=== PATIENT | female | born 2000 | race Caucasian/White ===

== ENCOUNTER 2022-04-11 18:19 | Emergency (ER) | payer OTHER, SELFPAY ==
[2022-04-11 18:29] VITALS: BP 129/85; PULSE 107; RESP 18; TEMP 36.4; O2SAT 99; BMI 27.5
--- NOTE | 2022-04-11 18:57 | ED.ABDPAIN ---
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 Patient is been having diarrhea for about 3 weeks. She did go to clinic at [facility] and did have labs and stool studies done. At the end of March her blood work for celiac, thyroid, comprehensive metabolic panel and cell counts were all normal, was able to review those results as she kindly brought them in [facility]. She subsequently had negative stool studies done. She has started to have diarrhea almost every time she eats. She has had maybe some blood with wiping but states that clinic they did find a couple erosions from wiping with the diarrhea. There has been no veena blood from what I am understanding from her. She has started to have some pain radiating into the right shoulder. No nausea or vomiting. She cannot say there is really different foods that make this worse. There is maybe a grandfather who has had his gallbladder out. Her mom has issues with constipation but there is no known inflammatory bowel disease. She and her father are coming in here to rule out gallbladder disease. She unfortunately ate at 5:30 a.m. [facility] and is presenting about an hour and a half after eating. She has no active abdominal pain or right shoulder pain at this time, no nausea or vomiting at this time, no fever at this time. She had her menstrual cycle through part of this and dusted complicates the question of bleeding or not. Related Data Home Medications Medication Instructions Recorded Confirmed Zoloft 25 mg PO DAILY 04/11/22 04/11/22 Allergies Allergy/AdvReac Type Severity Reaction Status Date / Time No Known Drug Allergies Allergy Verified 04/11/22 18:34 Review of Systems Status of ROS Reports: 6 or more systems reviewed and unremarkable except as noted in History and below Exam Const: Vital Signs, click to edit/add: Vital Signs - 24 hr 04/11/22 18:29 Temperature 97.5 F L Pulse Rate [Right Pulse Oximeter] 107 H Respiratory Rate 18 Blood Pressure [Ri ght Upper Arm] 129/85 Pulse Oximetry 99 Oxygen Delivery Me thod Room Air Documenting provider has reviewed patient's vital signs: yes Common normals: no apparent distress, average body habitus, oriented x3, no limitations, healthy appearing, alert and well nourished General appearance: cooperative, comfortable and well [facility] HENMT: Common normals: normocephalic, head/scalp atraumatic and hearing grossly normal bilaterally Head and scalp: normocephalic and atraumatic Eye: Common normals: PERRL, EOMs intact bilaterally, conjunctivae normal and no scleral icterus Conjunctiva: conjunctiva(e) normal Pupil: PERRL Resp: Common normals: normal respiratory effort, no retractions, no use of accessory muscles and clear to auscultation bilaterally Auscultation: clear to auscultation bilaterally Cardio: Common normals: regular rate, regular rhythm, S1 normal heart sound, S2 normal heart sound, no gallops, no clicks and no murmurs Rate: regular rate Rhythm: regular rhythm Heart sounds: S1 normal and S2 normal GI: Common normals: Normal to inspection, nondistended, normoactive bowel sounds present, soft to palpation, non-tender, no hepatosplenomegaly and no masses Palpation: soft and no hepatosplenomegaly Neuro: Common normals: oriented x3, moves all extremities and no focal motor deficits Sensorium/orientation: alert Speech: speech normal Gait (neuro): normal gait Psych: Appearance: well [facility] Course Course Hospital Course: I reviewed with them that in the setting of her having no acute abdominal pain, no acute symptoms, gallbladder ultrasound would potentially be worthless in this situation. Even offer were normal, cannot say that it truly is normal because she just ate an hour and a half ago. This stands to confound a gallbladder ultrasound. She really should be NPO for 6 hours. Dad offered to bring her back at 11:30 a.m. [place] but I reviewed with him that this really isn't emergent and weak all our ultrasound people in from home. Given she is a college student and does not have routine primary care down here, I am willing to write for an ultrasound for them of a limited right upper quadrant which can be done later. I have reviewed with them that the complication of me ordering this is that there may not be somebody to follow it up and if it does come back abnormal on a day I am gone, the patient may not get the results back and tell I am back in the ER. Also reviewed with them that even if there was a normal gallbladder ultrasound, this does not mean the workup stops if she has ongoing diarrhea. There can be the possibility of a dysfunctional gallbladder which would require a HIDA scan. This is not something I would be willing to order and is not in emergency test. They would have to follow up either in clinic or with our General surgery to have this done. Likewise, a colonoscopy may need to be considered with ongoing diarrhea normal gallbladder workup. It is my thought to do labs tonight, I will certainly get them an ultrasound scheduled outpatient and will have Radiology work with them. I have discussed with them that we do not technically have a prior authorization process and there could be complications with that in the morning when trying to get this scheduled. Ultimately, I do think he should continue to follow up either in clinic or consider seen on our general surgeon to fully workup gallbladder if needed. Vital Signs Vital signs: Initial Vital Signs Temperature 97.5 F L 04/11/22 18:29 Temperature Source Temporal Artery Scan 04/11/22 18:29 Pulse Rate 107 H 04/11/22 18:29 Respiratory Rate 18 04/11/22 18:29 Blood Pressure 129/85 04/11/22 18:29 Blood Pressure Mean 99 04/11/22 18:29 Blood Pressure Position Sitting 04/11/22 18:29 Pulse Oximetry 99 04/11/22 18:29 Oxygen Delivery Method 04/11/22 18:29 Vital Signs Temperature 97.5 F L 04/11/22 18:29 Pulse Rate 107 H 04/11/22 18:29 Respiratory Rate 18 04/11/22 18:29 Blood Pressure 129/85 04/11/22 18:29 Pulse Oximetry 99 04/11/22 18:29 Oxygen Delivery Method 04/11/22 18:29 Temperature 97.5 F L 04/11/22 18:29 Pulse Rate 107 H 04/11/22 18:29 Respiratory Rate 18 04/11/22 18:29 Blood Pressure 129/85 04/11/22 18:29 Pulse Oximetry 99 04/11/22 18:29 Oxygen Delivery Method 04/11/22 18:29 MDM - Abdominal Pain Lab Data Attestation: I reviewed the patient's lab results. Labs: Lab Results 04/11/22 04/11/22 04/11/22 Range/Units 19:18 19:18 19:18 WBC 10.25 (4.50-11.00) K/uL RBC 4.51 (4.00-5.20) m/uL Hgb 13.9 (12.0-16.0) gm/dL Hct 41.4 (33.0-51.0) % MCV 92 (80-100) fL MCH 31 (26-34) pg MCHC 34 (32-36) gm/dL Plt Count 336 (140-440) K/uL Neut % (Auto) 58.6 (42.0-72.0) % Lymph % (Auto) 33.0 (20-44) % Stephenson % (Auto) 7.3 (0.0-11.0) % Eos % (Auto) 0.8 (0.0-7.0) % Baso % (Auto) 0.2 (0.0-3.0) % Neut # (Auto) 6.00 (1.7-7.0) K/uL Lymph # (Auto) 3.40 H (0.90-2.90) K/uL Stephenson # (Auto) 0.70 (0.00-0.90) K/UL Eos # (Auto) 0.10 (0.00-0.50) K/uL Baso # (Auto) 0.00 (0.00-0.30) K/uL Abs Immat Gran (auto) 0.00 (0.00-0.30) K/uL Imm/Tot Granulo (auto) 0.1 % Sodium 139 (135-149) mmol/L Potassium 3.8 (3.6-5.1) mmol/L Chloride 104 (96-114) mmol/L Carbon Dioxide 25 (20-32) mmol/L BUN 14 (5-24) mg/dL Creatinine 0.8 (0.6-1.2) mg/dL Estimated Creat Clear 97.67 Estimated GFR 109 ml/min Glucose 100 (60-115) mg/dL Lactate 1.0 (0.5-1.9) mmol/L Calcium 9.9 (8.7-10.8) mg/dL Total Bilirubin 0.3 (0.1-1.5) mg/dL AST 27 (12-35) U/L ALT 17 (4-35) U/L Alkaline Phosphatase 68 (40-150) U/L C-Reactive Protein < 0.5 L (0.5-1.0) mg/dL Total Protein 7.5 (6.0-8.3) g/dL Albumin 4.8 (3.3-5.0) g/dL Lipase 32 (23-300) U/L Critical Care Time Critical Care Time Critical Care Time: No Discharge Plan Discharge Clinical Impression: Diarrhea Patient Disposition: Home, Self-Care Condition: Stable Instructions: Biliary Colic (ED), Gallstones (ED), Low Fat Diet (ED), Gallbladder Ejection Fraction (DC), Nutrition Tips for Relief of Diarrhea (ED) Additional Instructions: The plan is for the radiology department to contact you tomorrow to help you get scheduled for an outpatient right upper quadrant ultrasound to look at her gallbladder. I cannot promise that there could not be complications with this as I am unsure of the prior authorization process at this time. If for some reason you can not get this scheduled as I planned, recommend you follow up in clinic here or back at [facility] as soon as you can. I do not feel that you need that this ultrasound done emergently tonight but should you develop increasing abdominal pain, vomiting or fever with this, please return to the ED for further evaluation. I have given you plenty of handouts to review including 1 to help with nutrition tips for relief of diarrhea. Activity Level: Activity as Tolerated Diet Detail: Review handouts. Prescriptions: No Action Zoloft 25 mg PO DAILY Stand Alone Forms: [employer] Info Instructions
[2022-04-11 19:37] LABS: Basophils Percent Auto 0.2 % (0.0-3.0); Eosinophils Percent Auto 0.8 % (0.0-7.0); Hematocrit 41.4 % (33.0-51.0); Hemoglobin* 13.9 gm/dL (12.0-16.0); Immature Granulocytes Pct Auto 0.1 %; Mean Corpuscular HGB Conc 34 gm/dL (32-36); Mean Corpuscular Hemoglobin 31 pg (26-34); Mean Corpuscular Volume 92 fL (80-100); Monocytes Percent Auto 7.3 % (0.0-11.0); Neutrophils Percent Auto 58.6 % (42.0-72.0); Platelet Count* 336 K/uL (140-440); Red Blood Count 4.51 m/uL (4.00-5.20); White Blood Count* 10.25 K/uL (4.50-11.00)
[2022-04-11 19:38] LABS: Slide Review Reflex No
[2022-04-11 19:45] LABS: Albumin* 4.8 g/dL (3.3-5.0); Chloride* 104 mmol/L (96-114)
[2022-04-11 19:46] LABS: Potassium* 3.8 mmol/L (3.6-5.1); Sodium* 139 mmol/L (135-149)
[2022-04-11 19:48] LABS: Bilirubin Total* 0.3 mg/dL (0.1-1.5); Creatinine* 0.8 mg/dL (0.6-1.2); Est. Creatinine Clearance* 97.67; Estimated Glomerular Filt Rate 109 ml/min
[2022-04-11 19:49] LABS: Alanine Aminotransferase* 17 U/L (4-35); Alkaline Phosphatase* 68 U/L (40-150); Aspartate Amino Transferase* 27 U/L (12-35); Blood Urea Nitrogen* 14 mg/dL (5-24); Carbon Dioxide* 25 mmol/L (20-32); Glucose* 100 mg/dL (60-115); Lipase* 32 U/L (23-300); Total Protein* 7.5 g/dL (6.0-8.3)
[2022-04-11 19:50] LABS: Calcium* 9.9 mg/dL (8.7-10.8)
[2022-04-11 19:52] LABS: C Reactive Protein* < 0.5 mg/dL (0.5-1.0)
== END 2022-04-11 21:00 | disposition home or self-care (01) ==
PROVIDERS: Emergency Provider Family Medicine
DX: R19.7 Diarrhea, unspecified (principal)
CPT/HCPCS: 36415; 80053; 83605; 83690; 85025; 86140; 99282; 99283

== ENCOUNTER 2022-04-12 14:47 | Outpatient (CLI) | payer OTHER, SELFPAY ==
--- NOTE | 2022-04-12 15:00 | CRLHL7_ITS ---
For Patients: As a result of the Century Cures Act, medical imaging exams and procedure reports are released immediately into your electronic medical record. You may view this report before your referring provider. If you have questions, please contact your health care provider. INDICATION: Abdominal pain TECHNIQUE: Ultrasound abdomen limited. Sonographic images of the right upper quadrant were obtained using guzman-scale and color Doppler images. COMPARISON: None FINDINGS: Liver: Normal in size and echotexture. No masses. No intrahepatic biliary dilatation. Gallbladder: Dependent debris and sludge. Normal wall thickness. No pericholecystic fluid. Common bile duct: 5 mm. Pancreas: Normal. Right kidney: 9.3 cm. Normal echotexture and cortex. No masses, stones, or hydronephrosis. Vasculature: Proximal abdominal aorta and IVC are normal. IMPRESSION: Dependent gallbladder debris and sludge. The gallbladder is otherwise unremarkable. Normal common bile duct. Dictated by Ramesh Braun MD @ 04/12/2022 3:40:51 PM (Electronically Signed)
== END 2022-04-12 14:48 | disposition home or self-care (01) ==
LOC: US 14:49
PROVIDERS: Visit Provider Family Medicine
DX: R10.9 Unspecified abdominal pain (principal)
CPT/HCPCS: 76705

== ENCOUNTER 2024-04-25 19:19 | Emergency (ER) | payer OTHER, SELFPAY ==
[2024-04-25 19:32] VITALS: BP 121/80; PULSE 100; RESP 16; TEMP 36.9; O2SAT 97; BMI 25.7
--- NOTE | 2024-04-25 19:58 | ED.GENADULT ---
HPI - General Adult General Chief complaint: Back Injury/Pain Stated complaint: lower back spasms/pain Time Seen by Provider: 04/25/24 19:52 Source: patient Mode of arrival: ambulatory Limitations: no limitations History of Present Illness HPI narrative: She is a 23-year-old female coming in today complaining of low back pain that radiates across the entire lower back, right side greater than left. She states that she has a history of an L5-S1 herniated disc and that she has had pain in this area before. Historically it shoots sharp pain down into 1 leg. This is not happening this time. She states that when her back spasms however, she gets a tingling sensation down both legs that last seconds. She denies any difficulty walking or any motor deficits. She denies any loss of bowel or bladder function. Patient states that she dances in this week she had 4 hour dance practice is on most days. She denies falling or hitting her back on anything. She denies any fevers, chills, nausea or vomiting. No changes in her appetite. She denies any unintentional weight changes. She denies any rashes. The pain started this morning. Related Data Home Medications ?Medication ?Instructions ?Recorded ?Confirmed Zoloft 25 mg PO DAILY 04/11/22 04/25/24 Previous Rx's ?Medication ?Instructions ?Recorded cyclobenzaprine 10 mg tablet 10 mg PO BID PRN muscle spasm #10 04/25/24 tabs ketorolac 10 mg tablet 10 mg PO TID 5 days #15 tabs 04/25/24 methylprednisolone 4 mg tablets in See Rx Instructions PO .COMPLEX 04/25/24 a dose pack (Medrol (Kd)) #21 ea Allergies Allergy/AdvReac Type Severity Reaction Status Date / Time No Known Drug Allergies Allergy Verified 04/11/22 18:34 Review of Systems Status of ROS: Reports: 10 or more systems reviewed and unremarkable except as noted in History and below PFSH PFSH Social History Smoking Status: Never smoker Do you use any of these nicotine containing products: None Second hand tobacco smoke exposure: No How often do you have a drink containing alcohol: never AUDIT-C Alcohol total score: 0 Non-prescribed substance use: denies use service: No Exam Narrative: Exam Narrative: Well-nourished well-developed patient in no acute distress. Alert and oriented. Answers questions appropriately. Mood and affect are appropriate. Thoughts are goal oriented and rational. No tangential or magical thinking noted. Patient speaks in full sentences without needing to catch her breath. Patient is laughing with her friend when I walk in the room. HEENT: Normocephalic atraumatic. Pupils are equally round reactive to light. Extraocular muscles are intact. Conjunctivae are moist without any icterus noted. Moist mucous membranes. Abdomen: Soft and nontender nondistended with normal bowel sounds. Extremities: Bilateral lower extremities are without edema. Normal DP and PT pulses. Skin: Well perfused without any obvious rashes. Back: Normal appearance. Patient has no tenderness to palpation over the thoracic or lumbar spine. She has some tenderness over the right paraspinal musculature of the lumbar spine. Strength is 5/5 of the lower extremities of both proximal and distal muscle groups. There is no footdrop. Reflexes are 2+ and symmetric at the knees. Gait is normal. Const: Vital Signs, click to edit/add: Vital Signs - 24 hr 04/25/24 19:32 Temperature 98.4 F Pulse Rate [Pulse Oximeter] 100 Respiratory Rate 16 Blood Pressure [Ri ght Upper Arm] 121/80 Pulse Oximetry 97 Oxygen Delivery Me thod Room Air Course Course ED Course: Toradol 30 mg IM given in the ER today. Vital Signs Vital signs: Initial Vital Signs Temperature 98.4 F 04/25/24 19:32 Temperature Source Temporal Artery Scan 04/25/24 19:32 Pulse Rate 100 04/25/24 19:32 Respiratory Rate 16 04/25/24 19:32 Blood Pressure 121/80 04/25/24 19:32 Blood Pressure Mean 93 04/25/24 19:32 Blood Pressure Position Sitting 04/25/24 19:32 Pulse Oximetry 97 04/25/24 19:32 Oxygen Delivery Method Room Air 04/25/24 19:32 Vital Signs Temperature 98.4 F 04/25/24 19:32 Pulse Rate 100 04/25/24 19:32 Respiratory Rate 16 04/25/24 19:32 Blood Pressure 121/80 04/25/24 19:32 Pulse Oximetry 97 04/25/24 19:32 Oxygen Delivery Method Room Air 04/25/24 19:32 Temperature 98.4 F 04/25/24 19:32 Pulse Rate 100 04/25/24 19:32 Respiratory Rate 16 04/25/24 19:32 Blood Pressure 121/80 04/25/24 19:32 Pulse Oximetry 97 04/25/24 19:32 Oxygen Delivery Method Room Air 04/25/24 19:32 Medical Decision Making MDM Narrative Medical decision making narrative: 23-year-old female with low back pain, history of his disc herniation. Will send the patient home on a Medrol Dosepak, Toradol and Flexeril. Follow up with her primary care provider next week. Discharge Plan Discharge Clinical Impression: Acute lumbar back pain Additional Instructions: Take all steroid as prescribed. Use pain medications (Ketorolac) and muscle relaxer (FLEXERIL) as needed. Recommend you follow-up with your primary care provider this next week. Return to the emergency department if you develop weakness of your lower extremities, loss of control of bladder or bowel, fevers or vomiting. Prescriptions: New ketorolac 10 mg tablet 10 mg PO TID 5 Days Qty: 15 0RF methylprednisolone [Medrol (Kd)] 4 mg tablets,dose pack See Rx Instructions .ROUTE .COMPLEX Qty: 21 0RF Rx Instructions: orally per package directions cyclobenzaprine 10 mg tablet 10 mg PO BID PRN (Reason: muscle spasm) Qty: 10 0RF No Action Zoloft 25 mg PO DAILY Follow Up/Referrals: Provider,Not a Local [Primary Care Provider] - Stand Alone Forms: [employer] Info Instructions
--- OUTSIDE RECORDS SUMMARY | 2024-04-25 20:02 | XMS_ITS | Referral Summary ---
Author Organization [facility] Address [address] [place] [address] Care Team Providers Care Ballistics Expert Name Role Phone Laurent Thomson MD Primary Care Provider Laurent Thomson MD Unavailable Encounters Date Type Department Care Team Description 04/02/2024 MyC Medical Advice [facility] [address] [phone] [place] 04/01/2024 4:30 PM CDT Virtual Visit [address] [phone] Laurent Thomson MD Mild recurrent major depression (H); Anxiety from Last 3 Months Allergies No known active allergies Medications albuterol (PROAIR HFA/PROVENTIL HFA/VENTOLIN HFA) 108 (90 Base) MCG/ACT inhalerIndicatio ns:Mild intermittent asthma without complication Inhale 2 puffs into the lungs every 6 hours as needed for shortness of breath or wheezing 54 g 1 3 Active sertraline (ZOLOFT) 25 MG tabletIndication s:Mild recurrent major depression (H),Anxiety Take 1 tablet (25 mg) by mouth daily. 90 tablet 1 4 Active sertraline (ZOLOFT) 25 MG tabletIndication s:Mild recurrent major depression (H),Anxiety Take 1 tablet (25 mg) by mouth daily 90 tablet 1 3 04/01/20 24 Discontin ued(Reord er (No AVS)) Active Problems Patient Care Coordination No te Formatting of this note migh t be different from the original. [email or web address] Problem Noted Date Diagnosed Date Mild recurrent major depression 06/20/2022 Anxiety 06/20/2022 BMI (body mass index), pedia tric, 85% to less than 95% for age 1206/20/2019 Family history of hyperlipidemia 06/20/2019 Family history of diabetes mellitus 06/20/2019 Mild intermittent asthma without complication Resolved Problems Problem Noted Date Diagnosed Date Resolved Date Arthralgia of both knees 04/18/2015 Immunizations Name Administration Dates Next Due COVID-19 12+ (Pfizer) 04/04/2023 COVID-19 MONOVALENT 12+ (Pfizer) 05/13/2021,09/29,09/16/2020 Comvax (HIB/HepB) 08/20/2003,2002,07/28/19 03 DTAP (<7y) 05/30/2007, 4,08/20/2003,12/02,2002,2002 HEPATITIS A (PEDS 12M-18Y) 06/13/2011,04/21/2010 HPV9 03/18/2018,11/11/2017,09/06/2017 Influenza (IIV3) PF 04/11/2007, 6,04/20/2005,05/19 Influenza Intranasal Vaccine 06/13/2011 Influenza Vaccine >6 months,quad, PF 10/2022,04/11/2022,04/12/2021,03/03,04/16/2019,04/18/2018,05/04/2017 ,04/12/2016,05/31/2015,04/16/2014,03/31 Influenza, Split Virus, Triv alent, Pf (Fluzone\Fluarix) 05/29/2010,04/21/2010,03/04/2009,04/26,04/11/2007,04/26/2006 MMR 06/17/2006,05/21/2003 MMR/V 06/17/2006 Meningococcal ACWY (Menveo??) 07/29/2018, 013 Meningococcal B (Bexsero??) 02/11/2020, 9 Pneumococcal (PCV 7) 05/19/2004,12/03/19 03,2002,07/28 Poliovirus, inactivated (IPV) 05/30/2007 ,11/19/2003,2002,07/28 TDAP (Adacel,Boostrix) 06/19/2023 TDAP Vaccine (Adacel) 06/09/2013 Varicella 06/17/2006,05/21/2003 Social History Tobacco Use Types Packs/Day Years Used Date Smoking Tobacco: Never Smokeless Tobacco: Never PHQ-2 Answer Date Recorded PHQ-2 Score 0 04/01/2024 Adolescent Education Answer Date Record ed Getting School Help Needed Not on file 04/16 Food Insecurity Answer Date Recorded Within the past 12 months, d id you worry that your food would run out before you got money to buy more? No 06/18/2023 Within the past 12 months, d id the food you bought just not last and you didn? t have money to get more? No 06/18/2023 Housing Stability Answer Date Recorded Do you have housing? (Housin g is defined as stable permanent housing and does not include staying ouside in a car, in a tent, in an abandoned building, in an overnight skilled nursing, or couch-surfing.) Yes 06/18/2023 Are you worried about losing your housing? No 06/18/2023 Financial Resource Strain Answer Date R ecorded Within the past 12 months, h ave you or your family members you live with been unable to get utilities (heat, electricity) when it was really needed? No 06/18/2023 Transportation Needs Answer Date Record ed Within the past 12 months, h as lack of transportation kept you from medical appointments, getting your medicines, non-medical meetings or appointments, work, or from getting things that you need? No 06/18/2023 Interpersonal Safety Answer Date Record ed Do you feel physically and e motionally safe where you currently live? Yes 06/19/2023 Within the past 12 months, h ave you been hit, slapped, kicked or otherwise physically hurt by someone? No 06/19/2023 Within the past 12 months, h ave you been humiliated or emotionally abused in other ways by your partner or ex-partner? No 06/19/2023 Comments No Sex and Gender Information Value Date Recorded Sex Assigned at Female 09/02/2020 12:54 PM DESIZING MACHINE OPERATOR Legal Sex Female 4:38 AM DESIZING MACHINE OPERATOR Gender Identity Female 09/02/2020 12:54 PM DESIZING MACHINE OPERATOR Sexual Orientation Straight 09/02/2020 12 :54 PM DESIZING MACHINE OPERATOR Last Filed Vital Signs Vital Sign Reading Time Taken Comments Blood Pressure 100/68 06/19/2023 7:24 AM DESIZING MACHINE OPERATOR Pulse 79 06/19/2023 7:24 AM DESIZING MACHINE OPERATOR Temperature 36.8 ??C (98.2 ??F) 06/19/2023 7:24 AM CS T Respiratory Rate 15 06/19/2023 7:24 AM DESIZING MACHINE OPERATOR Oxygen Saturation 99% 06/19/2023 7:24 AM DESIZING MACHINE OPERATOR Inhaled Oxygen Concentration - - Weight 75.8 kg (167 lb) 06/19/2023 7:24 AM DESIZING MACHINE OPERATOR Height 164.5 cm (5' 4.75) 06/19/2023 7:24 AM CS T Body Mass Index 28.01 06/19/2023 7:24 AM DESIZING MACHINE OPERATOR Plan of Treatment Not on file Procedures Procedure Name Priority Date/Time Associated Diagnosis Comments CHLAMYDIA TRACHOMATIS PCR Routine 06/19/2023 8:00 AM DESIZING MACHINE OPERATOR Screening for STDs (sexually transmitted diseases) ASTHMA ACTION PLAN Routine 06/19/2023 7: 43 AM DESIZING MACHINE OPERATOR Mild intermittent asthma without complication GYNECOLOGIC CYTOLOGY Routine 06/19/2023 7:28 AM DESIZING MACHINE OPERATOR Cervical cancer screening HEPATITIS C ANTIBODY Routine 10/28/2020 7:35 AM CDT Need for hepatitis C screening test HIV ANTIGEN ANTIBODY COMBO Routine 06/20/2019 11:12 AM DESIZING MACHINE OPERATOR Encounter for routine child health examination w/o abnormal findings Screening for human immunodeficiency virus from Last 3 Months or Most Recently Relevant to Health Maintenance Results * Chlamydia trachomatis PCR (06/19/2023 8:00 AM DESIZING MACHINE OPERATOR) Chlamydia trachomatis Negative Negative 06/19/2023 5:42 PM DESIZING MACHINE OPERATOR [facility] Comment:A negative result by residential designer mediated amplification does not preclude the presence of C. trachomatis infection because results are dependent on proper and adequate collection, absence of inhibitors and sufficient rRNA to be detected. Urine VOIDED URINE SPECIMEN / Unknown Non-blood Collection / Unknown 06/19/2023 8:00 AM DESIZING MACHINE OPERATOR 06/19/2023 8:00 AM DESIZING MACHINE OPERATOR Laurent Thomson MD LAB - MICRO GENERAL ORDERAB LES Final Result [facility] Inf. Diseases Diag. Lab [address] [facility], [address] [place] [phone], [facility] [phone] * Pap Screen only - recommended age 21 - 24 years (06/19/2023 7:28 AM DESIZING MACHINE OPERATOR) Interpretation Negative for Intraepithelial Lesion or Malignancy (NILM) 06/21/2023 11:12 AM DESIZING MACHINE OPERATOR [facility] Comment Papanicolaou Test Limitations: Cervical cytology is a screening test with limited sensitivity, and regular screening is critical for cancer prevention. Pap tests are primarily effective for the diagnosis/prevent ion of squamous cell carcinoma, not adenocarcinoma or other cancers. 06/21/2023 11:12 AM DESIZING MACHINE OPERATOR [facility] Specimen Adequacy Satisfactory for evaluation, endocervical/christie sformation zone component present 06/21/2023 11:12 AM DESIZING MACHINE OPERATOR [facility] Clinical Information none 06/21/2023 11:12 AM DESIZING MACHINE OPERATOR [facility] Reflex Testing No 06/21/2023 11:12 AM DESIZING MACHINE OPERATOR [facility] Previous Abnormal? No 06/21/2023 11:12 AM DESIZING MACHINE OPERATOR [facility] Performing Labs The technical component of this testing was completed at [facility] 06/21/2023 11:12 AM DESIZING MACHINE OPERATOR [facility] Brushing CERVIX UTERI STRUCTURE / Unknown 06/19/2023 7:28 AM DESIZING MACHINE OPERATOR 06/19/2023 9:40 AM DESIZING MACHINE OPERATOR Laurent Thomson MD LAB - BEAKER AP Final Resul t [facility] [address] [facility], [address] [address], [facility] [phone] * Hepatitis C antibody (10/28/2020 7:35 AM CDT) Hepatitis C Antibody Nonreactive NR^Nonre active 10/28/2020 6:01 PM CDT [facility] Comment: Assay performance characteristics have not been established for newborns, infants, and children Blood 10/28/2020 7:35 AM CDT 10/28/2020 7:36 AM CDT Laurent Thomson MD LAB - BLOOD ORDERABLES Anita l Result Performing Organization Address City/[facility]/ZIP Co de Phone Number [facility] [address] [place] [address] * HIV Antigen Antibody Combo (06/20/2019 11:12 AM DESIZING MACHINE OPERATOR) HIV Antigen Antibody Combo Nonreactive NR^Nonrea ctive 06/22/2019 9:54 AM DESIZING MACHINE OPERATOR [facility] Comment:HIV-1 p24 Ag & HIV-1 /HIV-2 Ab Not Detected Blood specimen (specimen) 06/20/2019 11:12 AM DESIZING MACHINE OPERATOR 06/20/2019 11:13 AM DESIZING MACHINE OPERATOR Laurent Thomson MD LAB - BLOOD ORDERABLES Anita l Result [facility] [address] [place] [address] from Last 3 Months or Most Recently Relevant to Health Maintenance Insurance [employer] Care Teams Ballistics Expert Relationship Specialty Start Date End Date Laurent Thomson MD PCP - General Family Practice 06/20/19 Laurent Thomson MD [address] [place] [address] Assigned PCP 06/23/22
--- OUTSIDE RECORDS SUMMARY | 2024-04-25 20:02 | XMS_ITS | Clinical Summary ---
Author Organization [facility] Address [address] [place] [address] Care Team Providers Care Global Clinical Leader Name Role Phone Laurent Thomson MD Primary Care Provider Laurent Thomson MD Unavailable [phone] Allergies No known active allergies Medications albuterol [...] migh t be different from the original. [email or web address] Problem Noted Date Diagnosed Date Mild recurrent major depression 06/20/2022 Anxiety 06/20/2022 BMI (body mass index), pedia tric, 85% to less than 95% for age 1206/20/2019 Family history of hyperlipidemia 06/20/2019 Family history of diabetes mellitus 06/20/2019 Mild intermittent asthma without complication Resolved Problems Problem Noted Date Diagnosed Date Resolved Date Arthralgia of both knees 04/18/2015 Encounters Date Type Department Care Team Description 04/02/2024 MyC Medical Advice [facility] Addiction [place] [id number] [address] [place] [phone] [place] 04/01/2024 4:30 PM CDT Virtual Visit [address] [phone] Laurent Thomson MD Mild recurrent major depression (H); Anxiety from Last 3 Months Immunizations Name Administration Dates Next Due COVID-19 [...] 06/19/2023 TDAP Vaccine (Adacel) 06/09/2013 Varicella 06/17/2006,05/21/2003 Family History Medical History Relation Comments Allergies Brother Asthma Father Hyperlipidemia Father Hypertension Father Diabetes Maternal Grandfather Hyperlipidemia Maternal Grandfather Asthma Mother Relation Status Comments Brother Father Alive Maternal Grandfather Mother Alive Social History Tobacco Use Types Packs/Day Years [...] in an abandoned building, in an overnight residential, or couch-surfing.) Yes 06/18/2023 Are you worried [...] Sex Assigned at Female 09/02/2020 12:54 PM GLAZIER STRUCTURAL GLASS Legal Sex Female 4:38 AM GLAZIER STRUCTURAL GLASS Gender Identity Female 09/02/2020 12:54 PM GLAZIER STRUCTURAL GLASS Sexual Orientation Straight 09/02/2020 12 :54 PM GLAZIER STRUCTURAL GLASS Last Filed Vital Signs Vital Sign Reading Time Taken Comments Blood Pressure 100/68 06/19/2023 7:24 AM GLAZIER STRUCTURAL GLASS Pulse 79 06/19/2023 7:24 AM GLAZIER STRUCTURAL GLASS Temperature 36.8 ??C (98.2 ??F) 06/19/2023 7:24 AM CS T Respiratory Rate 15 06/19/2023 7:24 AM GLAZIER STRUCTURAL GLASS Oxygen Saturation 99% 06/19/2023 7:24 AM GLAZIER STRUCTURAL GLASS Inhaled Oxygen Concentration - - Weight 75.8 kg (167 lb) 06/19/2023 7:24 AM GLAZIER STRUCTURAL GLASS Height 164.5 cm (5' 4.75) 06/19/2023 7:24 AM CS T Body Mass Index 28.01 06/19/2023 7:24 AM GLAZIER STRUCTURAL GLASS Plan of Treatment Health Maintenance Due Date Last Done Comments INFLUENZA VACCINE (#1) 2024 3, 04/11/2022, 04/12/2021, Additional history exists Postponed from 03/01/2024 (Other) Pneumococcal Vaccine: Pediatrics (0 to 5 Years) and At-Risk Patients (6 to 64 Years) (1 of 2 - PCV) 06/16/2024 05/19/2004, 2002, 2002, Additional history exists Postponed from 2008 (Other) ANNUAL REVIEW OF HM ORDERS 06/19/202406/19, 06/20/2022, 06/21/2021 ASTHMA ACTION PLAN 06/19/2024 06/19/2023, 1 08/20/2022, 06/19/2023, Additional history exists CHLAMYDIA SCREENING 06/19/2024 06/19/2023, 06/20/2022, 10/28/2020 YEARLY PREVENTIVE VISIT 06/19/2024 06/19/20, 06/20/2022, 01/29/2022, Additional history exists COVID-19 Vaccine ( season) 2024 04/04/2023, 04/11/2022, 05/13/2021, Additional history exists Postponed from 03/01/2024 (Other) ASTHMA CONTROL TEST 09/30/2024 04/01/2024, 06/19/2023, 06/20/2022, Additional history exists PHQ-9 09/30/2024 04/01/2024, 06/01, 06/20/2022, Additional history exists PAP 06/19/2026 06/19/2023 ADVANCE CARE PLANNING 06/20/2027 06/20/2022 DTAP/TDAP/TD IMMUNIZATION (8 - Td or Tdap) 06/19/2033 06/19/2023, 06/09/2013, 05/30/2007, Additional history exists RSV VACCINE (1 - 1-dose 75+ series) 2077 HEPATITIS B IMMUNIZATION Completed 004, 2002, 2002 HPV IMMUNIZATION Completed 03/18/2018, , 09/06/2017 MENINGITIS IMMUNIZATION Completed 07/29/2018, 06/15 HIV SCREENING Completed 06/20/2019 HEPATITIS C SCREENING Completed 10/28/2020 DEPRESSION ACTION PLAN Completed 06/19/2023, 2022 RSV MONOCLONAL ANTIBODY Aged Out No l onger eligible based on patient's age to complete this topic Procedures Procedure Name Priority Date/Time Associated Diagnosis Comments CHLAMYDIA TRACHOMATIS PCR Routine 06/19/2023 8:00 AM GLAZIER STRUCTURAL GLASS Screening for STDs (sexually transmitted diseases) ASTHMA ACTION PLAN Routine 06/19/2023 7: 43 AM GLAZIER STRUCTURAL GLASS Mild intermittent asthma without complication GYNECOLOGIC CYTOLOGY Routine 06/19/2023 7:28 AM GLAZIER STRUCTURAL GLASS Cervical cancer screening HEPATITIS C ANTIBODY Routine 10/28/2020 7:35 AM CDT Need for hepatitis C screening test HIV ANTIGEN ANTIBODY COMBO Routine 06/20/2019 11:12 AM GLAZIER STRUCTURAL GLASS Encounter for routine child health examination w/o abnormal findings Screening for human immunodeficiency virus from Last 3 Months or Most Recently Relevant to Health Maintenance Results * Chlamydia trachomatis PCR (06/19/2023 8:00 AM GLAZIER STRUCTURAL GLASS) Chlamydia trachomatis Negative Negative 06/19/2023 5:42 PM GLAZIER STRUCTURAL GLASS [facility] Comment:A negative result by director of compensation mediated amplification does not preclude the presence of C. trachomatis infection because results are dependent on proper and adequate collection, absence of inhibitors and sufficient rRNA to be detected. Urine VOIDED URINE SPECIMEN / Unknown Non-blood Collection / Unknown 06/19/2023 8:00 AM GLAZIER STRUCTURAL GLASS 06/19/2023 8:00 AM GLAZIER STRUCTURAL GLASS us Laurent Thomson MD LAB - MICRO GENERAL ORDERAB LES Final Result [facility] Inf. Diseases Diag. Lab [address] [facility], [address] [place] [address], [facility] [phone] * Pap Screen only - recommended age 21 - 24 years (06/19/2023 7:28 AM GLAZIER STRUCTURAL GLASS) Interpretation Negative for Intraepithelial Lesion or Malignancy (NILM) 06/21/2023 11:12 AM GLAZIER STRUCTURAL GLASS [facility] Comment Papanicolaou Test Limitations: Cervical cytology is a screening test with limited sensitivity, and regular screening is critical for cancer prevention. Pap tests are primarily effective for the diagnosis/prevent ion of squamous cell carcinoma, not adenocarcinoma or other cancers. 06/21/2023 11:12 AM GLAZIER STRUCTURAL GLASS [facility] Specimen Adequacy Satisfactory for evaluation, endocervical/christie sformation zone component present 06/21/2023 11:12 AM GLAZIER STRUCTURAL GLASS [facility] Clinical Information none 06/21/2023 11:12 AM GLAZIER STRUCTURAL GLASS [facility] Reflex Testing No 06/21/2023 11:12 AM GLAZIER STRUCTURAL GLASS [facility] Previous Abnormal? No 06/21/2023 11:12 AM GLAZIER STRUCTURAL GLASS [facility] Performing Labs The technical component of this testing was completed at [facility] 06/21/2023 11:12 AM GLAZIER STRUCTURAL GLASS [facility] Brushing CERVIX UTERI STRUCTURE / Unknown 06/19/2023 7:28 AM GLAZIER STRUCTURAL GLASS 06/19/2023 9:40 AM GLAZIER STRUCTURAL GLASS Laurent Thomson MD LAB - BEAKER AP Final Resul t [facility] Special[facility] Lab [address] [place] [facility], [address] [address], [facility] [phone] * Hepatitis C antibody (10/28/2020 7:35 AM CDT) Hepatitis C Antibody Nonreactive NR^Nonre active 10/28/2020 6:01 PM CDT [facility] Comment: Assay performance characteristics have not been established for newborns, infants, and children Blood 10/28/2020 7:35 AM CDT 10/28/2020 7:36 AM CDT us Laurent Thomson MD LAB - BLOOD ORDERABLES Anita l Result [facility] [address] [place] [address] * HIV Antigen Antibody Combo (06/20/2019 11:12 AM GLAZIER STRUCTURAL GLASS) HIV Antigen Antibody Combo Nonreactive NR^Nonrea ctive 06/22/2019 9:54 AM GLAZIER STRUCTURAL GLASS [facility] Comment:HIV-1 p24 Ag & HIV-1 /HIV-2 Ab Not Detected Blood specimen (specimen) 06/20/2019 11:12 AM GLAZIER STRUCTURAL GLASS 06/20/2019 11:13 AM GLAZIER STRUCTURAL GLASS us Laurent Thomson MD LAB - BLOOD ORDERABLES Anita metz Result [facility] [address] [place] [address] from Last 3 Months or Most Recently Relevant to Health Maintenance Insurance [employer] [facility] Care Teams Global Clinical Leader Relationship Specialty Start Date End Date Laurent Thomson MD PCP - General Family Practice 06/20/19 Laurent Thomson MD [address] [facility] [place] [address] Assigned PCP 06/23/22
--- OUTSIDE RECORDS SUMMARY | 2024-04-25 20:02 | XMS_ITS | Clinical Summary ---
Author Organization [facility] Address [address] [place] [address] Care Team Providers Care District Operations Manager Name Role Phone Laurent Thomson MD Primary Care Provider Source Comments You are receiving this document as you are listed as the primary care provider,follow-up provider, or the patient has been referred to you for consultation.This is in compliance with the Medicare andMedicaid EHR Incentive Program,which states Providers who transition their patient to another setting of careor provider of care or refers their patient to another provider of care shouldprovide summary care record for each transition of care or referral. [facility] Allerg[facility] No known active allergies Medications Medication Sig Dispensed Refills Start Date End Date Status triamcinolone acetonide (KENALOG) 0.1 % creamIndications:Itc eunice Apply to affected area twice daily for 7-10 days for itching. Do not use longer than 2 weeks continuously. 30 g 02/24/2019 Active Additional Information Patient not taking.Reported on 08/20/2021 mupirocin (BACTROBAN) 2 % ointmentIndications: Minor Bacterial Skin Infection Apply to affected area 2-3 times daily for 7 days Indications: Minor Skin Infection due to a Bacteria 22 g 08/13/2019 Active Additional Information Patient not taking.Reported on 08/20/2021NovemberL 07/20 1-20 MG-MCG tablet Take 1 Tablet by mouth daily. 07/13/2021 Active hydrOXYzine HCl (ATARAX) 25 MG tablet 1/2 to 1 tab three times daily as needed for anxiety 06/21/2021 Active diclofenac (VOLTAREN) 50 MG enteric coated tabletIndications:Radha hayes radiculopathy Take 1 Tablet (50 mg) by mouth two times a day. 30 Tablet 08/20/2021 Active Active Problems Problem Noted Date Diagnosed Date Mild intermittent asthma without complication Resolved Problems Problem Noted Date Diagnosed Date Resolved Date Precocious sexual development and puberty 12/16/2007 11/21/2020 Overview (02/20/2017): Puberty Precocious Immunizations Name Administration Dates Next Due 9vHPV (Gardasil 9) 03/18/2018,11/11/2017, 018 Bexsero (Meningococcal Group B Vaccine) 07/29/2018 DTaP 05/30/2007, 4,08/20/2003,2002,2002,2002 Flu Vac (3+ yrs) 04/11/2007, 6,04/20/2005,2003 Flu Vac Preserv Free (3+yrs) 05/29/2010, 04/21/2010,03/04/2009,2007,04/11/2007,04/26/2006 HepA Ped/Adol (1-18 yrs) 06/13/2011,04/21/2010 Hib/HBV 08/20/2003,2002,2002 IPV (Polio) 05/30/2007, 4,2002,2002 Influenza IIV4 (Quadrivalent ) 0.5mL (76948) 04/16/2019,04/18/2018,05/04/2017,2015,05/31/2015,04/16/2014,04/17/2013 Influenza LAIV3 2-49 years (Flumist) 06/13/2011 MCV4 Menveo 2m.+ (two vial) 07/29/2018, 3 MMR 06/17/2006,05/21/2003 MMRV (ProQuad) 06/17/2006 Pneumococcal 7, PED 05/19/2004, 3,2002,2002 Tdap 06/09/2013 Varicella 06/17/2006,05/21/2003 Social History Tobacco Use Types Packs/Day Years Used Date Smoking Tobacco: Never Smokeless Tobacco: Never Sex and Gender Information Value Date Recorded Sex Assigned at Not on file Gender Identity Not on file Sexual Orientation Not on file Last Filed Vital Signs Vital Sign Reading Time Taken Comments Blood Pressure 112/70 03/18/2017 12:49 PM CDT Pulse 90 01/11/2017 10:53 AM CDT Temperature 36.5 ??C (97.7 ??F) 08/20/2021 8:09 AM CS T Respiratory Rate 18 01/11/2017 10:53 AM CDT Oxygen Saturation - - Inhaled Oxygen Concentration - - Weight 68 kg (150 lb) 08/20/2021 8:09 AM SCALE OPERATOR Height 162.6 cm (5' 4) 08/20/2021 8:09 AM SCALE OPERATOR Body Mass Index 25.75 08/20/2021 8:09 AM SCALE OPERATOR Plan of Treatment Health Maintenance Due Date Last Done Comments Cervical Cancer Screening Due 2002 Hep C Screening (Preventive Services) 2002 Asthma ACT 2006 Pneumococcal (1 - PCV) 2008 4, 2002, 2002, Additional history exists Chlamydia 06/23/2018 06/23/2017 (Completed) Adult Preventive Visit 2020 DTaP/Tdap/Td (7 - Tdap) 06/09/2023 06/09/20 13, 05/30/2007, 11/19/2003, Additional history exists COVID-19 Vaccine ( season) 2024 05/13/2021, 10/14/2020, 09/16/2020 Influenza (#1) 2024 04/12/2021, 0908/2019, 04/16/2019, Additional history exists Zoster/Shingles (1 of 2) 2052 HepB Completed 08/20/2003, 08/30, 2002 Hib Completed 08/20/2003, 08/30, 2002 Varicella Completed 06/17/2006, 05/31, 05/21/2003 IPV (Polio) Completed 05/30/2007, 10/30, 2002, Additional history exists HepA Completed 06/13/2011, 04/21/2010 HPV Vaccine Completed 03/18/2018, 10/29, 09/06/2017 MCV4 Completed 07/29/2018, 06/15/2013 HIV Screening (Preventive Services) Completed 06/20/2019 (Completed) Infant RSV Aged Out No longer eligi ble based on patient's age to complete this topic Care Teams District Operations Manager Relationship Specialty Start Date End Date Laurent Thomson MD [address] [place] [place] [address] PCP - General Pediatric Medicine 07/04/19
--- OUTSIDE RECORDS SUMMARY | 2024-04-25 20:03 | XMS_ITS | Clinical Summary ---
Author Organization [facility] Address [place], [place] [address] Care Team Providers Care Closing Coordinator Name Role Phone Laurent Thomson MD Primary Care Provider [phone] Allergies No known active allergies Medications Medication Sig Dispensed Refills Start Date End Date Status diclofenac enteric coated (VOLTAREN) 50 mg tablet Take 50 mg by mouth. 08/20/2021 Active cyclobenzaprine (FLEXERIL) 5 mg tablet TAKE ONE TO TWO TABLETS BY MOUTH AT BEDTIME NEEDED FOR MUSCLE SPASMS 12/14/2021 Active naproxen (NAPROSYN) 500 mg tablet Take 500 mg by mouth in the morning and 500 mg in the evening. Take with meals. 12/14/2021 Active levonorgestrel-ethin yl estradiol (SEASONALE) 0.15 mg-30 mcg (91) tabletIndications:Dy smenorrhea Take 1 Tablet by mouth once daily. 91 Tablet 3 01/29/2022 Active albuterol HFA (PRO-AIR; VENTOLIN; PROVENTIL) 90 mcg/actuation inhalerIndications:E xercise-induced asthma Inhale 2 Puffs by mouth every 4 hours if needed for Shortness Of Breath. 18 g 02/09/2022 Active sertraline (ZOLOFT) 25 mg tabletIndications:An xiety and depression Take 1 Tablet (25 mg) by mouth every morning. 90 Tablet 02/09/2022 Active Active Problems Problem Noted Date Diagnosed Date Anxiety and depression 02/09/2022 Family history of diabetes mellitus 06/20/2019 BMI (body mass index), pedia tric, 85% to less than 95% for age 1206/20/2019 Mild intermittent asthma without complication Immunizations Name Administration Dates Next Due COVID-19 vaccine (Adomik NTech 30mcg/0.3mL) PF, MDV 10/14/2020,09/16/2020 DTaP 05/30/2007, 4,08/20/2003,12/02,2002,2002 HIB-HepB (Comvax) 08/20/2003,2002,07/28/19 03 HPV 9 (Gardasil 9) 03/18/2018,11/11/2017, 018 Hepatitis A (Peds) 06/13/2011,04/21/2010 Inactivated Polio Vaccine 05/30/2007,,2002,07/28 Influenza, IIV3 (Age 6-35 mos) 0,04/21/2010,03/04/2009,04/26,04/11/2007,04/26/2006 Influenza, IIV3 (Age >=3 years) 04/20/2005,05/19 Influenza, IIV4 04/12/2021, 0,04/16/2019,04/18,05/04/2017,04/12/2016,05/31/2015 ,04/16/2014,04/17/2013 Influenza,LAIV3 Live Intrana lan (Flumist) 06/13/2011 MENINGOCOCCAL VACCINE 2 VIAL 2MO-55YO (MENVEO) 07/29/2018,06/15/2013 MMR 06/17/2006,05/21/2003 MMRV 06/17/2006 Meningococcal B 02/11/2020,07/29/2018 Pneumococcal conj 7-Valent (Prevnar 7) 1 07/19/2003,2002,2002,07/28 Tdap 06/09/2013 Varicella Vaccine 06/17/2006,05/21/2003 Family History Relation Name Status Comments Mother Alive Social History Tobacco Use Types Packs/Day Years Used Date Smoking Tobacco: Never Smokeless Tobacco: Never Tobacco Cessation:Counseling Given: Yes Alcohol Use Standard Drinks/Week Comments Never 0 (1 standard drink = 0.6 oz pur e alcohol) PHQ-2 Answer Date Recorded PHQ-2 TOTAL SCORE 2 02/09/2022 Social Connections Answer Date Recorded Frequency of Communication with Friends and Fami ly Not on file 07/01/2021 Financial Resource Strain Answer Date R ecorded Difficulty of Paying Living Expenses Not on file 07/01/2021 Difficulty of Paying Living Expenses Not on file 07/01/2021 Sex and Gender Information Value Date Recorded Sex Assigned at Not on file Gender Identity Not on file Sexual Orientation Not on file Obstetrics History Para Term AB IAB SAB Ectopic Multiple Livin g Live Births 0 0 0 0 0 0 0 0 0 0 0 Last Filed Vital Signs Vital Sign Reading Time Taken Comments Blood Pressure 112/74 03/29/2022 3:45 PM CDT Pulse 82 03/29/2022 3:45 PM CDT Temperature 36.9 ??C (98.5 ??F) 03/29/2022 3:45 PM CD T Respiratory Rate - - Oxygen Saturation 98% 03/29/2022 3:45 PM CDT Inhaled Oxygen Concentration - - Weight 76.2 kg (168 lb) 03/29/2022 3:45 PM CDT Height 162.9 cm (5' 4.13) 03/29/2022 3:45 PM CD T Body Mass Index 28.72 03/29/2022 3:45 PM CDT Plan of Treatment Health Maintenance Due Date Last Done Comments HIV for age 15-65 2017 Hepatitis C screening for age 18-79 2020 Depression screening for age 12+ 02/09/2023 02/09/2022, 01/29/2022, 01/26/2022, Additional history exists BMI (ht and wt on same day) for age 18+ 03/29/2023 03/29/2022, 01/29/2022, 01/26/2022, Additional history exists Pap test for age 21-65 2023 Tetanus booster 06/09/2023 06/09/2013 COVID-19 vaccine series ( season) 2024 05/13/2021, 10/14/2020, 09/16/2020 Influenza for age 9-49 03/01/2024 , 03/03/2020, 04/16/2019, Additional history exists Pneumococcal series for age 6-64 Aged Out 05/19/2004, 2002, 2002, Additional history exists No longer eligible based on patient's age to complete this topic Tdap Completed 06/09/2013 HPV series for age 9-26 Completed 03/18/20 18, 11/11/2017, 09/06/2017 Meningococcal series for age 11-21 Completed 07/29/2018, 06/15/2013 Care Teams Closing Coordinator Relationship Specialty Start Date End Date Laurent Thomson MD [address] [place] [id number] PCP - General Family Practice 01/22/20
--- OUTSIDE RECORDS SUMMARY | 2024-04-25 20:03 | XMS_ITS | Encounter Summary ---
Author Organization [facility] Address [address] [place] [address] Care Team Providers Care Home Furnishings Sales Representative Name Role Phone Wade Glover Primary Care Provider Loan Pink MD Unavailable [phone] Loan Pink MD Unavailable Laurent Thomson MD Primary Care Provider [phone] Laurent Thomson MD Unavailable [phone] Laurent Thomson MD Unavailable [phone] Ramesh Jasmine MD Unavailable Loan Pink MD Unavailable [phone] Laurent Thomson MD Unavailable [phone] Encounter Details Date Type Department Care Team (Late st Contact Info) Description 09/12/2016 [facility] [address] [id number] Wade Glover [facility] [address] [place] [address] [facility] [id number] Social History Tobacco Use Types Packs/Day Years Used Date Smoking Tobacco: Never Smokeless Tobacco: Never Comments No Sex and Gender Information Value Date Recorded Sex Assigned at Female 09/02/2020 12:54 PM TUFTING CREELER Legal Sex Female 4:38 AM TUFTING CREELER Gender Identity Female 09/02/2020 12:54 PM TUFTING CREELER Sexual Orientation Straight 09/02/2020 12 :54 PM TUFTING CREELER documented as of this encounter Plan of Treatment Not on file documented as of this encounter Visit Diagnoses Not on filedocumented in this encounter Care Teams Home Furnishings Sales Representative Relationship Specialty Start Date End Date Wade Glover [facility] [address] [facility] [address] PCP - General 10/12/10 06/19/19 Loan Pink MD [address] [facility] [address] [id number] PCP - Assigned PCP 07/26/16 09/02/18 Laurent Thomson MD [address] [facility] [address] [id number] PCP - General Family Practice 06/20/19 Loan Pink MD [address] [facility] [address] [id number] Assigned PCP 07/26/16 10/24/19 Laurent Thomson MD [address] [facility] [address] [id number] Assigned PCP 11/06/20 05/04/22 Laurent Thomson MD [address] [facility] [address] [address] Assigned PCP 10/25/19 11/05/20 Ramesh Jasmine MD [address] [facility] [address] [place] [address] Assigned Musculoskeletal Provider 12/16/21 08/22/23 Loan Pink MD [address] [id number] Assigned PCP 05/05/22 06/22/22 Laurent Thomson MD [address] [place] [address] Assigned PCP 06/23/22 documented as of this encounter
--- OUTSIDE RECORDS SUMMARY | 2024-04-25 20:03 | XMS_ITS | Encounter Summary ---
Author Organization [facility] Address [address] [place] [address] Care Team Providers Care Director Of Digital Marketing Name Role Phone Laurent Thomson MD Primary Care Provider Laurent Thomson MD Unavailable Encounter Details Date Type Department Care Team (Late st Contact Info) Description 04/02/2024 [facility] [address] [address] [place] Social History Tobacco Use Types Packs/Day Years [...] Sex Assigned at Female 09/02/2020 12:54 PM HAND CULTIVATOR Legal Sex Female 4:38 AM HAND CULTIVATOR Gender Identity Female 09/02/2020 12:54 PM HAND CULTIVATOR Sexual Orientation Straight 09/02/2020 12 :54 PM HAND CULTIVATOR documented as of this encounter Plan of Treatment Not on file documented as of this encounter Visit Diagnoses Not on filedocumented in this encounter Additional Health Concerns Assessment Noted Time PHQ-9 Depression Total Score: 0 04/01/20 24 4:32 PM CDT documented as of this encounter Care Teams Director Of Digital Marketing Relationship Specialty Start Date End Date Laurent Thomson MD PCP - General Family Practice 06/20/19 Laurent Thomson MD [address] [facility] [place] [address] Assigned PCP 06/23/22 documented as of this encounter
--- OUTSIDE RECORDS SUMMARY | 2024-04-25 20:03 | XMS_ITS | Encounter Summary ---
Author Organization [facility] Address [address] [place] [address] Care Team Providers Care Buffer Operator Name Role Phone Laurent Thomson MD Primary Care Provider Laurent Thomson MD Unavailable Laurent Thomson MD Unavailable Ramesh Jasmine MD Unavailable [phone] Loan Pink MD Unavailable Laurent Thomson MD Unavailable [phone] Encounter Details Date Type Department Care Team (Late st Contact Info) Description 10/31/2020 [facility] [place] [address] [phone] Laurent Thomson MD [address] [place] [address] Social History Tobacco Use Types Packs/Day Years Used Date Smoking Tobacco: Never Smokeless Tobacco: Never PHQ-2 Answer Date Recorded PHQ-2 Score 0 10/28/2020 Comments No Sex and Gender Information Value Date Recorded Sex Assigned at Female 09/02/2020 12:54 PM TELEGRAPHIC SERVICE DISPATCHER Legal Sex Female 4:38 AM TELEGRAPHIC SERVICE DISPATCHER Gender Identity Female 09/02/2020 12:54 PM TELEGRAPHIC SERVICE DISPATCHER Sexual Orientation Straight 09/02/2020 12 :54 PM TELEGRAPHIC SERVICE DISPATCHER COVID-19 Exposure Response Date Recorded In the last month, have you been in contact with someone who was confirmed or suspected to have Coronavirus / COVID-19? No / Unsure 10/28/2020 7:00 AM CDT documented as of this encounter Miscellaneous Notes * Telephone Encounter - Beena Lao - 10/31/2020 10:04 AM CDT No documentation seen in chart regarding contacting pt. Please advise on lab results documented in this encounter Plan of Treatment Not on file documented as of this encounter Visit Diagnoses Not on filedocumented in this encounter Additional Health Concerns Assessment Noted Time PHQ-9 Depression Total Score: 3 06/20/20 19 11:43 AM TELEGRAPHIC SERVICE DISPATCHER documented as of this encounter Care Teams Buffer Operator Relationship Specialty Start Date End Date Laurent Thomson MD PCP - General Family Practice 06/20/19 Laurent Thomson MD [address] [place] [address] Assigned PCP 11/06/20 05/04/22 Laurent Thomson MD [address] [place] [address] Assigned PCP 10/25/19 11/05/20 Ramesh Jasmine MD [address] [facility] [address] [place] [address] Assigned Musculoskeletal Provider 12/16/21 08/22/23 Loan Pink MD [address] [address] Assigned PCP 05/05/22 06/22/22 Laurent Thomson MD [address] [place] [address] Assigned PCP 06/23/22 documented as of this encounter
--- OUTSIDE RECORDS SUMMARY | 2024-04-25 20:03 | XMS_ITS | Encounter Summary ---
Author Organization [facility] Address [address] [place] [address] Care Team Providers Care Electric Meter Technician Name Role Phone Laurent Thomson MD Primary Care Provider [phone] Ramesh Jasmine MD Unavailable [phone] Laurent Thomson MD Unavailable Encounter Details Date Type Department Care Team (Late st Contact Info) Description 02/07/2023 [facility] [place] [address] [place] [address] [phone] Laurent Thomson MD [address] [place] [id number] Mild recurrent major depression (H); Anxiety Social History Tobacco Use Types Packs/Day Years Used Date Smoking Tobacco: Never Smokeless Tobacco: Never PHQ-2 Answer Date Recorded PHQ-2 Score 2 06/20/2022 Comments No Sex and Gender Information Value Date Recorded Sex Assigned at Female 09/02/2020 12:54 PM DRY CLIPPER TENDER Legal Sex Female 4:38 AM DRY CLIPPER TENDER Gender Identity Female 09/02/2020 12:54 PM DRY CLIPPER TENDER Sexual Orientation Straight 09/02/2020 12 :54 PM DRY CLIPPER TENDER documented as of this encounter Miscellaneous Notes * Telephone Encounter - Laurent Thomson MD - 02/08/2023 6:43 AM CDT Please schedule patient for a virtual visit this month-okay to use any available slot on the virtual or in person visit on my schedule for a video visit * Telephone Encounter - Kaita Ling RN - 02/07/2023 12:03 PM CDT Routing refill request to provider for review/approval because: Patient needs to be seen because: Needs follow-up visit and med check. Patient advised to schedule a visit. CAHYA [facility]al[facility] Primary Care Triage documented in this encounter Plan of Treatment Not on file documented as of this encounter Visit Diagnoses Diagnosis Mild recurrent major depression (H) Major depressive disorder, recurrent episode, mild Anxiety Anxiety state, unspecified documented in this encounter Additional Health Concerns Assessment Noted Time PHQ-9 Depression Total Score: 2 06/20/20 22 8:16 AM DRY CLIPPER TENDER documented as of this encounter Care Teams Electric Meter Technician Relationship Specialty Start Date End Date Laurent Thomson MD PCP - General Family Practice 06/20/19 Ramesh Jasmine MD [address] [facility] [address] [place] [address] Assigned Musculoskeletal Provider 12/16/21 08/22/23 Laurent Thomson MD [address] [facility] [address] Assigned PCP 06/23/22 documented as of this encounter
--- OUTSIDE RECORDS SUMMARY | 2024-04-25 20:03 | XMS_ITS | Encounter Summary ---
Author Organization [facility] Address [address] [place] [address] Care Team Providers Care Director Furniture Name Role Phone Laurent Thomson MD Primary Care Provider [phone] Laurent Thomson MD Unavailable [phone] Ramesh Jasmine MD Unavailable Loan Pink MD Unavailable [phone] Laurent Thomson MD Unavailable [phone] Encounter Details Date Type Department Care Team (Late st Contact Info) Description 12/14/2021 [facility] [address] [address] Ramesh Jasmine MD [address] [place] [address] [address] [place] [address] Social History Tobacco Use Types Packs/Day Years Used Date Smoking Tobacco: Never Smokeless Tobacco: Never PHQ-2 Answer Date Recorded PHQ-2 Score 0 12/14/2021 Comments No Sex and Gender Information Value Date Recorded Sex Assigned at Female 09/02/2020 12:54 PM TECHNICAL REPORT WRITER Legal Sex Female 4:38 AM TECHNICAL REPORT WRITER Gender Identity Female 09/02/2020 12:54 PM TECHNICAL REPORT WRITER Sexual Orientation Straight 09/02/2020 12 :54 PM TECHNICAL REPORT WRITER COVID-19 Exposure Response Date Recorded In the last 10 days, have yo u been in contact with someone who was confirmed or suspected to have Coronavirus/COVID-19? No / Unsure 12/14/2021 6:59 AM CDT documented as of this encounter Plan of Treatment Not on file documented as of this encounter Visit Diagnoses Not on filedocumented in this encounter Additional Health Concerns Assessment Noted Time PHQ-9 Depression Total Score: 2 06/22/20 7:02 AM TECHNICAL REPORT WRITER documented as of this encounter Care Teams Director Furniture Relationship Specialty Start Date End Date Laurent Thomson MD PCP - General Family Practice 06/20/19 Laurent Thomson MD [address] [place] [address] Assigned PCP 11/06/20 05/04/22 Ramesh Jasmine MD [address] [facility] [address] [place] [address] Assigned Musculoskeletal Provider 12/16/21 08/22/23 Loan Pink MD [address] [id number] Assigned PCP 05/05/22 06/22/22 Laurent Thomson MD [address] [place] [address] Assigned PCP 06/23/22 documented as of this encounter
--- OUTSIDE RECORDS SUMMARY | 2024-04-25 20:03 | XMS_ITS | Encounter Summary ---
Author Organization [facility] Address [address] [place] [address] Care Team Providers Care Blade Sharpener Name Role Phone Laurent Thomson MD Primary Care Provider [phone] Laurent Thomson MD Unavailable [phone] Reason for Referral * Mental Health Outpatient (Routine: Next available opening) - Pending Review Specialty Diagnoses / Procedures Referred By Contmallory t Referred To Contact Diagnoses Mild recurrent major depression (H) Anxiety Laurent Thomson MD [address] [place] [address] Phone: tel: fax: Referral ID Status Reason Start Date Expiration Date V isits Requested Visits Authorized [id number] Pending Review 04/01/2024 04/01/2025 1 1 Question Answer Services: Psychotherapy/Counseling (non-medication) Reason for Referral: Individual Psychotherapy/Counseling Patient Scheduling Instructions: [facility] will call you to coordinate your care as prescribed by your provider. If you don't hear from a lead generation representative within 2 business days, please call . Only select yes if the patient has already been scheduled and requires a referral for insurance. If yes is selected, the referral will NOT route to scheduling for outreach. No Comments Please be aware that coverage of these services is subject to the terms and limitations of your health insurance plan. Call member services at your health plan with any benefit or coverage questions. [facility] will call you to coordinate your care as prescribed by your provider. If you don't hear from a lead generation representative within 2 business days, please call . Reason for Visit * Reason Comments Recheck Medication Zoloft Refill Encounter Details Date Type Department Care Team (Late st Contact Info) Description 04/01/2024 4:30 PM CDT Virtual Visit [facility] [address] [address] Laurent Thomson MD [address] [place] [id number] Mild recurrent major depression (H); Anxiety [...] in an abandoned building, in an overnight snf, or couch-surfing.) Yes 06/18/2023 Are you worried [...] Sex Assigned at Female 09/02/2020 12:54 PM STAINED GLASS INSTALLER Legal Sex Female 4:38 AM STAINED GLASS INSTALLER Gender Identity Female 09/02/2020 12:54 PM STAINED GLASS INSTALLER Sexual Orientation Straight 09/02/2020 12 :54 PM STAINED GLASS INSTALLER documented as of this encounter Progress Notes * Laurent Thomson MD - 04/01/2024 4:30 PM CDT If patient has telephone visit, have they been educated on video visit as preferred visit method and offered to change to video visit? N/A Instructions Relayed to Patient by Virtual Roomer: Patient is active on [employer]: Relayed following to patient: It looks like you are active on [employer], are you able to join the visit this way? If not, do you need us to send you a link now or would you like your provider to send a link via text or email when they are ready to initiate the visit? Patient Confirmed they will join visit via: [employer] Reminded patient to ensure they were logged on to virtual visit by arrival time listed. Asked if patient has flexibility to initiate visit sooner than arrival time: patient is unable to initiate visit earlier than arrival time If pediatric virtual visit, ensured pediatric patient along with parent/guardian will be present for video visit. Patient offered the website [email or web address] and/or phone number to [employer] Help line: [phone] Arcenio is a 23 year old who is being evaluated via a billable video visit. How would you like to obtain your AVS? MyChart If the video visit is dropped, the invitation should be resent by: Text to cell phone: [phone] Will anyone else be joining your video visit? No Assessment & Plan Mild recurrent major depression (H) 06/20/2022 8:14 AM 06/18/2023 8:15 PM 04/01/2024 4:28 PM PHQ PHQ-9 Total Score 2 9 0 Q9: Thoughts of better off /self-harm past 2 weeks Not at all Not at all Not at all Improved and stable, continue current dose of Zoloft, start on counseling - sertraline (ZOLOFT) 25 MG tablet; Take 1 tablet (25 mg) by mouth daily. Follow-up for recheck in 6 months at the time of physical or sooner if needed. - Adult Mental Health Mobile Battery Technician Referral; Future - EMOTIONAL / BEHAVIORAL ASSESSMENT Anxiety 06/21/2021 8:18 AM 06/20/2022 8:14 AM 04/01/2024 4:28 PM LINO-7 SCORE Total Score 3 (minimal anxiety) Total Score 3 4 1 as above - sertraline (ZOLOFT) 25 MG tablet; Take 1 tablet (25 mg) by mouth daily. - Adult Mental Health Mobile Battery Technician Referral; Future - EMOTIONAL / BEHAVIORAL ASSESSMENT BMI Estimated body mass index is 28.01 kg/m?? as calculated from the following: Height as of 06/19/23: 1.645 m (5' 4.75). Weight as of 06/19/23: 75.8 kg (167 lb). Chart documentation done in part with [employer] Voice recognition Software. Although reviewed after completion, some word and grammatical error may remain. See Patient Instructions Erna Rg is a 23 year old, presenting for the following health issues: Patient is here for a video visit instead of in person visit due to the current COVID-19 pandemic. Recheck Medication (Zoloft Refill ) 04/01/2024 3:13 PM Additional Questions Roomed by Chelsea Jacobs Accompanied by Self History of Present Illness Reason for visit: Refill of sertraline. She is taking medications regularly. Depression and Anxiety How are you doing with your depression since your last visit? No change How are you doing with your anxiety since your last visit? No change Are you having other symptoms that might be associated with depression or anxiety? YES - Pt stated that she has had one panic attack since last visit. Have you had a significant life event? No Do you have any concerns with your use of alcohol or other drugs? No Social History Tobacco Use Smoking status: Never Smokeless tobacco: Never 06/21/2021 8:18 AM 06/20/2022 8:14 AM 06/18/2023 8:15 PM PHQ PHQ-9 Total Score 2 2 9 Q9: Thoughts of better off /self-harm past 2 weeks Not at all Not at all Not at all 06/21/2021 8:18 AM 06/20/2022 8:14 AM LINO-7 SCORE Total Score 3 (minimal anxiety) Total Score 3 4 04/01/2024 4:28 PM Last PHQ-9 1. Little interest or pleasure in doing things 0 2. Feeling down, depressed, or hopeless 0 3. Trouble falling or staying asleep, or sleeping too much 0 4. Feeling tired or having little energy 0 5. Poor appetite or overeating 0 6. Feeling bad about yourself 0 7. Trouble concentrating 0 8. Moving slowly or restless 0 Q9: Thoughts of better off /self-harm past 2 weeks 0 PHQ-9 Total Score 0 Difficulty at work, home, or with people Not difficult at all 04/01/2024 4:28 PM LINO-7 1. Feeling nervous, anxious, or on edge 1 2. Not being able to stop or control worrying 0 3. Worrying too much about different things 0 4. Trouble relaxing 0 5. Being so restless that it is hard to sit still 0 6. Becoming easily annoyed or irritable 0 7. Feeling afraid, as if something awful might happen 0 LINO-7 Total Score 1 If you checked any problems, how difficult have they made it for you to do your work, take care of things at home, or get along with other people? Not difficult at all Review of Systems CONSTITUTIONAL: NEGATIVE for fever, chills, change in weight RESP:Hx asthma CV: NEGATIVE for chest pain, palpitations or peripheral edema PSYCHIATRIC: HX anxiety and HX depression Objective Vitals: No vitals were obtained today due to virtual visit. Physical Exam GENERAL: alert and no distress EYES: Eyes grossly normal to inspection RESP: No audible wheeze, cough, or visible cyanosis. NEURO: Cranial nerves grossly intact. Mentation and speech appropriate for age. PSYCH: Appropriate affect, tone, and pace of words Video-Visit Details Type of service: Video Visit Originating Location (pt. Location): Home Distant Location (provider location): Off-site Platform used for Video Visit: Chance Signed Electronically by: Laurent Thomson MD documented in this encounter Plan of Treatment Scheduled Referrals Name Type Priority Associated Diagnoses Orde r Schedule Adult Mental Health Mobile Battery Technician Referral Referral Routine: Next available opening Mild recurrent major depression (H) Anxiety Expected: 04/01/2024 (Approximate), Expires: 04/01/2025 documented as of this encounter Visit Diagnoses Diagnosis Mild recurrent major depression (H) Major depressive disorder, recurrent episode, mild Anxiety Anxiety state, unspecified documented in this encounter Additional Health Concerns Assessment Noted Time PHQ-9 Depression Total Score: 0 04/01/20 24 4:32 PM CDT documented as of this encounter Care Teams Blade Sharpener Relationship Specialty Start Date End Date Laurent Thomson MD PCP - General Family Practice 06/20/19 Laurent Thomson MD [address] [facility] [address] Assigned PCP 06/23/22 documented as of this encounter
--- OUTSIDE RECORDS SUMMARY | 2024-04-25 20:03 | XMS_ITS | Encounter Summary ---
Author Organization [facility] Address [address] [place] [address] Care Team Providers Care Executive Vice President Name Role Phone Laurent Thomson MD Primary Care Provider [phone] Laurent Thomson MD Unavailable [phone] Ramesh Jasmine MD Unavailable Loan Pink MD Unavailable [phone] Laurent Thomson MD Unavailable [phone] Encounter Details Date Type Department Care Team (Late st Contact Info) Description 12/14/2021 [facility] Medical Advice [facility] [address] [address] Ramesh Jasmine MD [address] [place] [address] [address] [place] [address] Social History Tobacco Use Types Packs/Day Years Used Date Smoking Tobacco: Never Smokeless Tobacco: Never PHQ-2 Answer Date Recorded PHQ-2 Score 0 12/14/2021 Comments No Sex and Gender Information Value Date Recorded Sex Assigned at Female 09/02/2020 12:54 PM BEAN WEIGHER Legal Sex Female 4:38 AM BEAN WEIGHER Gender Identity Female 09/02/2020 12:54 PM BEAN WEIGHER Sexual Orientation Straight 09/02/2020 12 :54 PM BEAN WEIGHER COVID-19 Exposure Response Date Recorded In the [...] Depression Total Score: 2 06/22/20 7:02 AM BEAN WEIGHER documented as of this encounter Care Teams Executive Vice President Relationship Specialty Start Date End Date Laurent Thomson MD PCP - General Family Practice 06/20/19 Laurent Thomson MD [address] [place] [address] Assigned PCP 11/06/20 05/04/22 Ramesh Jasmine MD [address] [facility] [address] [place] [address] Assigned Musculoskeletal Provider 12/16/21 08/22/23 Loan Pink MD [address] [id number] Assigned PCP 05/05/22 06/22/22 Laurent Thomson MD [address] [place] [address] Assigned PCP 06/23/22 documented as of this encounter
--- OUTSIDE RECORDS SUMMARY | 2024-04-25 20:03 | XMS_ITS | Encounter Summary ---
Author Organization [facility] Address [address] [place] [address] Care Team Providers Care Director Chemistry Name Role Phone Laurent Thomson MD Primary Care Provider [phone] Laurent Thomson MD Unavailable Ramesh Jasmine MD Unavailable [phone] Loan Pink MD Unavailable Laurent Thomson MD Unavailable Encounter Details Date Type Department Care Team (Late st Contact Info) Description 05/15/2021 [facility] Medical Advice [address] [phone] Laurent Thomson MD [address] [place] [address] Social History Tobacco Use Types Packs/Day Years Used Date Smoking Tobacco: Never Smokeless Tobacco: Never PHQ-2 Answer Date Recorded PHQ-2 Score 0 10/28/2020 Comments No Sex and Gender Information Value Date Recorded Sex Assigned at Female 09/02/2020 12:54 PM REEL OPERATOR Legal Sex Female 4:38 AM REEL OPERATOR Gender Identity Female 09/02/2020 12:54 PM REEL OPERATOR Sexual Orientation Straight 09/02/2020 12 :54 PM REEL OPERATOR documented as of this encounter Plan of Treatment Not on file documented as of this encounter Visit Diagnoses Not on filedocumented in this encounter Additional Health Concerns Assessment Noted Time PHQ-9 Depression Total Score: 3 06/20/20 11:43 AM REEL OPERATOR documented as of this encounter Care Teams Director Chemistry Relationship Specialty Start Date End Date Laurent Thomson MD PCP - General Family Practice 06/20/19 Laurent Thomson MD [address] [place] [address] Assigned PCP 11/06/20 05/04/22 Ramesh Jasmine MD On license of [facility] [address] [place] [address] Assigned Musculoskeletal Provider 12/16/21 08/22/23 Loan Pink MD [address] [address] Assigned PCP 05/05/22 06/22/22 Laurent Thomson MD [address] [place] [address] Assigned PCP 06/23/22 documented as of this encounter
[2024-04-25] MEDS: KETOROLAC 30 MG/ML inj IM (20:06)
== END 2024-04-25 20:24 | disposition home or self-care (01) ==
PROVIDERS: Emergency Provider Family Medicine
DX: S39.012A Strain of muscle, fascia and tendon of lower back, initial encounter (principal)
CPT/HCPCS: 96372; 99283; 99284; J1885